=== PATIENT | female | born 1950 | race Caucasian/White ===

== ENCOUNTER 2016-12-13 16:52 | Inpatient (IN) | payer MEDICARE, BC ==
[~2016-12-13] VITALS: Ht 157.5 cm; Wt 67.7 kg
[~2016-12-13 16:52] MED LIST: CLON1TAB4 PO; ESCI20TA37 PO; FAMO20TA8 PO; HYDR-551 PO; LEVO88TA5 PO; OLAN2.5T22 PO; TEMA15CA PO
[2016-12-13] MEDS ORDERED: ASPIRIN EC 325 MG TABLET.DR PO ONE (17:45)
[2016-12-13] MEDS ORDERED: NITROGLYCERIN 0.4 MG/TAB BOTTLE SL ONE ×2 (17:45→18:02)
[2016-12-13 18:00] LABS: BASOPHILS # (AUTO) 0.1 K/uL (0.0-8.0); EOSINOPHILS % (AUTO) 0.6 % (0.0-7.0); HEMATOCRIT 41.8 % (37-47); HEMOGLOBIN 14.1 G/DL (12.0-16.0); LYMPHOCYTES # (AUTO) 2.3 K/UL (0.8-4.8); LYMPHOCYTES % (AUTO) 32.9 % (20.5-51.5); MEAN CORPUSCULAR HEMOGLOBIN 30.3 UUG (27.0-31.0); MEAN CORPUSCULAR HGB CONC 34 g/dL (32.0-37.0); MONOCYTES # (AUTO) 0.5 K/UL (0.1-1.30); MONOCYTES % (AUTO) 7.8 % (0.0-11.0); NEUTROPHILS % (AUTO) 57.7 % (38.5-71.5); PLATELET COUNT (AUTO) 346 K/UL (150-450); RED BLOOD CELL COUNT(AUTO) 4.65 MIL/UL (4.2-5.4); WHITE BLOOD COUNT (AUTO) 6.9 K/UL (4.0-11.2)
[2016-12-13] MEDS ORDERED: ASPIRIN 81 MG TAB.CHEW ONE (18:02)
[2016-12-13 18:18] LABS: BILIRUBIN,TOTAL 0.5 mg/dL (0.2-1.0); CREATININE 0.9 mg/dL (0.6-1.3); POTASSIUM 3.5 mmol/L (3.5-5.1); TOTAL PROTEIN, SERUM 7.8 g/dL (6.4-8.2)
[2016-12-13] MEDS ORDERED: NAPROXEN 500 MG TABLET PO ONE (20:00)
[2016-12-13] MEDS ORDERED: NAPROXEN 500 MG TABLET ONE (20:14)
[2016-12-13 21:00] VITALS: BP 136/65
[2016-12-13] MEDS ORDERED: HYDROCODONE/APAP 7.5-325MG TABLET PO SCH (21:30)
[2016-12-13] MEDS ORDERED: ONDANSETRON 4 MG/2 ML VIAL IV PRN (21:30)
[2016-12-13] MEDS ORDERED: MAGNESIUM HYDROXIDE 30 ML LIQUID UDC PO PRN (21:30)
[2016-12-13] MEDS ORDERED: Z GUARD REMEDY PASTE 57 GM TUBE TOP PRN (21:30)
[2016-12-13] MEDS ORDERED: ACETAMINOPHEN 325 MG TABLET PO PRN (21:30)
[2016-12-13] MEDS ORDERED: HYDROCODONE/APAP 7.5-325MG TABLET ONE (22:27)
[2016-12-14] VITALS: BP 130/62
[2016-12-14 04:00] VITALS: BP 132/60
[2016-12-14 06:35] LABS: BASOPHILS # (AUTO) 0.1 K/uL (0.0-8.0); BASOPHILS % (AUTO) 1.1 % (0.0-2.0); EOSINOPHILS # (AUTO) 0.1 K/uL (0.0-0.7); EOSINOPHILS % (AUTO) 2.5 % (0.0-7.0); HEMATOCRIT 37.5 % (37-47); HEMOGLOBIN 12.7 G/DL (12.0-16.0); LYMPHOCYTES # (AUTO) 2.7 K/UL (0.8-4.8); MEAN CORPUSCULAR HEMOGLOBIN 30.8 UUG (27.0-31.0); MEAN CORPUSCULAR HGB CONC 34 g/dL (32.0-37.0); MEAN CORPUSCULAR VOLUME 91.2 FL (81.0-99.0); MONOCYTES # (AUTO) 0.6 K/UL (0.1-1.30); MONOCYTES % (AUTO) 10.8 % (0.0-11.0); NEUTROPHILS # (AUTO) 2.1 K/UL (1.8-8.9); NEUTROPHILS % (AUTO) 36.6 % (38.5-71.5); PLATELET COUNT (AUTO) 295 K/UL (150-450); RED BLOOD CELL COUNT(AUTO) 4.11 MIL/UL (4.2-5.4); WHITE BLOOD COUNT (AUTO) 5.6 K/UL (4.0-11.2)
[2016-12-14 06:51] LABS: BILIRUBIN,TOTAL 0.4 mg/dL (0.2-1.0); CREATININE 0.8 mg/dL (0.6-1.3); MAGNESIUM 2.2 mg/dL (1.8-2.4); PHOSPHOROUS 4.1 mg/dL (2.5-4.9); POTASSIUM 3.3 mmol/L (3.5-5.1); TOTAL PROTEIN, SERUM 6.7 g/dL (6.4-8.2)
[2016-12-14 06:57] LABS: THYROID STIMULATING HORMONE 3.557 mIU/mL (0.358-3.740)
[2016-12-14] MEDS ORDERED: TEMAZEPAM 15 MG CAPSULE PO SCH ×2 (07:30→09:00)
[2016-12-14] MEDS ORDERED: LEVOTHYROXINE SODIUM 88 MCG TABLET PO SCH (07:36)
[2016-12-14] MEDS ORDERED: HYDROCODONE/APAP 7.5-325MG TABLET PO PRN ×2 (08:30→21:30)
[2016-12-14] MEDS ORDERED: OLANZAPINE 2.5 MG TABLET PO SCH (09:00)
[2016-12-14] MEDS ORDERED: CLONAZEPAM 1 MG TABLET PO SCH (09:00)
[2016-12-14] MEDS ORDERED: FAMOTIDINE 20 MG TABLET PO SCH (09:00)
[2016-12-14] MEDS ORDERED: ESCITALOPRAM OXALATE 10 MG TABLET PO SCH (09:00)
[2016-12-14] MEDS ORDERED: PREGABALIN 25 MG CAPSULE PO SCH ×2 (09:00)
[2016-12-14] MEDS ORDERED: ASPIRIN EC 81 MG TABLET.DR PO SCH (09:00)
[2016-12-14] MEDS ORDERED: POTASSIUM CHLORIDE 20 MEQ TAB.PRT.SR PO ONE (10:45)
[2016-12-14] MEDS ORDERED: HYDROCODONE/APAP 10-325 MG TABLET PO PRN (11:00)
[2016-12-14 11:44] VITALS: BP 126/73
[2016-12-15] MEDS ORDERED: TEMAZEPAM 15 MG CAPSULE PO PRN (07:30)
== END 2016-12-14 14:00 | disposition home or self-care (01) | DRG 206 ==
LOC: ER 16:52 → TELE 19:58
PROVIDERS: ADMIT Nurse Practitioner Acute Care; ATTEND Nurse Practitioner Acute Care
DX: M94.0 Chondrocostal junction syndrome [Tietze] (principal); I25.10 Atherosclerotic heart disease of native coronary artery without angina pectoris; K21.9 Gastro-esophageal reflux disease without esophagitis; M19.90 Unspecified osteoarthritis, unspecified site; E66.9 Obesity, unspecified; F32.9 Major depressive disorder, single episode, unspecified; Z79.899 Other long term (current) drug therapy; I10 Essential (primary) hypertension; F41.9 Anxiety disorder, unspecified
CPT/HCPCS: 36415; 70030-TC; 71010; 83735; 84100; 84443; 85025; 85610; 93005; 93307; A4663

== ENCOUNTER 2018-03-15 13:22 | Emergency (ER) | payer MEDICARE, BC ==
[~2018-03-15] VITALS: Ht 162.6 cm; Wt 67.6 kg
[~2018-03-15 13:22] MED LIST changes: -CLON1TAB4 PO; +CLON1TAB5 PO; -OLAN2.5T22 PO; +OLAN2.5T27 PO
[2018-03-15] MEDS ORDERED: KETOROLAC TROMETHAMINE 30 MG INJ ONE (14:07)
[2018-03-15] MEDS: KETOROLAC TROMETHAMINE 30 MG INJ IM ONE (14:10)
--- NOTE | 2018-03-15 14:14 | NUR ---
Patient discharged to home in stable conditon. Written and verbal after care instructions given. Patient verbalizes understanding of instructions.
== END 2018-03-15 14:15 | disposition home or self-care (01) ==
LOC: ER 13:25
DX: M19.90 Unspecified osteoarthritis, unspecified site (principal); I10 Essential (primary) hypertension
CPT/HCPCS: A4663; J1885

== ENCOUNTER 2022-06-05 12:10 | Emergency (ER) | payer MEDICARE, BC ==
[~2022-06-05] VITALS: Ht 157.5 cm; Wt 58.5 kg
[~2022-06-05 12:10] MED LIST changes: +CLON1TAB12 PO; -CLON1TAB5 PO; -ESCI20TA37 PO; +ESCI20TA44 PO; +HYDR-4385 PO; -HYDR-551 PO
--- NOTE | 2022-06-05 12:30 | NUR ---
Dr Grant at the bedside for MSE.
[2022-06-05] MEDS ORDERED: ONDANSETRON 4 MG/2 ML VIAL ONE (12:37)
[2022-06-05] MEDS ORDERED: MORPHINE SULFATE 2 MG/1 ML DISP.SYRIN ONE (12:38)
[2022-06-05] MEDS ORDERED: MORPHINE SULFATE 2 MG/1 ML DISP.SYRIN IV ONE (12:45)
[2022-06-05] MEDS ORDERED: ONDANSETRON 4 MG/2 ML VIAL IV ONE (12:45)
[2022-06-05] MEDS ORDERED: IV NORMAL SALINE 500 ML BAG IV ONE (12:45)
--- NOTE | 2022-06-05 12:53 | NUR ---
Pt out of Er for CT scan.
--- NOTE | 2022-06-05 13:08 | NUR ---
Pt back from Ct scan. Resting in bed, NAD noted.
[2022-06-05 13:28] LABS: HEMATOCRIT 36.8 % (31.2-41.9); MEAN CORPUSCULAR HEMOGLOBIN 30.2 uug (24.7-32.8); MEAN CORPUSCULAR VOLUME 94.2 fL (75.5-95.3); PLATELET COUNT (AUTO) 384 K/uL (179-408)
[2022-06-05 13:36] LABS: CREATININE 0.7 mg/dL (0.6-1.3); POTASSIUM 3.9 mmol/L (3.5-5.1)
[2022-06-05 13:42] LABS: BILIRUBIN,DIRECT 0.1 mg/dL (0.0-0.2); BILIRUBIN,TOTAL 0.4 mg/dL (0.2-1.0); TOTAL PROTEIN, SERUM 6.5 g/dL (6.4-8.2)
[2022-06-05 14:09] LABS: *BILIRUBIN,URIN NEGATIVE (NEGATIVE); *BLOOD, URINE NEGATIVE (NEGATIVE); *CLARITY,URINE CLEAR (CLEAR); *COLOR,URINE YELLOW (YELLOW); *KETONES,URINE NEGATIVE (NEGATIVE); *UROBILINOGEN,URINE 0.2 E.U./dl (NORMAL); LEUKOCYTE ESTERASE ,URINE NEGATIVE (NEGATIVE); NITRITE, URINE NEGATIVE (NEGATIVE); UGLUCOSE NEGATIVE (NEGATIVE)
[2022-06-05] MEDS ORDERED: AMOX-430 PO (14:24)
[2022-06-05] MEDS ORDERED: DICY10CA13 PO (14:24)
--- NOTE | 2022-06-05 14:47 | NUR ---
IV removed. Catheter intact and site benign. Pressure and 4x4 gauze applied to site. No bleeding noted.
[2022-06-05 14:48] VITALS: BP 149/78
== END 2022-06-05 14:53 | disposition home or self-care (01) ==
LOC: ER 12:12
DX: R10.11 Right upper quadrant pain (principal); R10.13 Epigastric pain; K52.9 Noninfective gastroenteritis and colitis, unspecified; K76.89 Other specified diseases of liver; K21.9 Gastro-esophageal reflux disease without esophagitis; I25.10 Atherosclerotic heart disease of native coronary artery without angina pectoris; E78.00 Pure hypercholesterolemia, unspecified; Z79.899 Other long term (current) drug therapy; M19.90 Unspecified osteoarthritis, unspecified site
CPT/HCPCS: 99285; 74176; 96374; 96361; 96375; 80076; 80048; 81003; 83690; 85025; 36415; 93005; J2405; J2270; J7040; A4663

== ENCOUNTER 2022-06-10 12:59 | Emergency (ER) | payer MEDICARE, OTHER ==
[~2022-06-10] VITALS: Ht 157.5 cm; Wt 59.0 kg
[~2022-06-10 12:59] MED LIST changes: +AMOX-430 PO; +DICY10CA13 PO
--- NOTE | 2022-06-10 16:31 | NUR ---
PATIENT WAS SEEN BY MD. LABS DRAWN, CT SCAN IN PROCESS. C/O ABD PAIN
[2022-06-10 16:33] LABS: HEMATOCRIT 38.2 % (31.2-41.9); MEAN CORPUSCULAR HEMOGLOBIN 30.5 uug (24.7-32.8); MEAN CORPUSCULAR VOLUME 94.3 fL (75.5-95.3); PLATELET COUNT (AUTO) 477 K/uL (179-408)
[2022-06-10 16:51] LABS: BILIRUBIN,DIRECT 0.1 mg/dL (0.0-0.2); BILIRUBIN,TOTAL 0.3 mg/dL (0.2-1.0); CREATININE 0.6 mg/dL (0.6-1.3); POTASSIUM 3.6 mmol/L (3.5-5.1); TOTAL PROTEIN, SERUM 7.1 g/dL (6.4-8.2)
[2022-06-10 17:34] LABS: *BILIRUBIN,URIN NEGATIVE (NEGATIVE); *BLOOD, URINE NEGATIVE (NEGATIVE); *CLARITY,URINE CLEAR (CLEAR); *COLOR,URINE YELLOW (YELLOW); *KETONES,URINE NEGATIVE (NEGATIVE); *UROBILINOGEN,URINE 0.2 E.U./dl (NORMAL); LEUKOCYTE ESTERASE ,URINE NEGATIVE (NEGATIVE); NITRITE, URINE NEGATIVE (NEGATIVE); PH,URINE 6.5 (5.0-8.0); UGLUCOSE NEGATIVE (NEGATIVE)
[2022-06-10] MEDS ORDERED: KETOROLAC TROMETHAMINE 15 MG INJ IM ONE (18:00)
[2022-06-10] MEDS ORDERED: MORPHINE SULFATE 2 MG/1 ML DISP.SYRIN IM ONE (18:00)
--- NOTE | 2022-06-10 18:18 | NUR ---
DR CA IS SPEAKING TO PATIENT AND . PAIN MEDS GIVEN ORDERED. PATIENT TOLERATED IT WELL
--- NOTE | 2022-06-10 18:38 | NUR ---
DC, AND FOLLOW UP INSTRUCTIONS GIVEN AND EXPLAINED TO PATIENT WHO STATES SHE UNDERSTANDS ALL INSTRUCTIONS
== END 2022-06-10 18:49 | disposition home or self-care (01) ==
LOC: ER 13:00
DX: R10.30 Lower abdominal pain, unspecified (principal); E78.00 Pure hypercholesterolemia, unspecified; K21.9 Gastro-esophageal reflux disease without esophagitis; I25.10 Atherosclerotic heart disease of native coronary artery without angina pectoris; Z86.59 Personal history of other mental and behavioral disorders; Z79.899 Other long term (current) drug therapy
CPT/HCPCS: 99284; 74176; 80076; 80048; 81003; 83690; 85025; 36415; 96372 ×2; 87040; J1885; J2270; A4663